=== PATIENT | female | born 1975 | race Caucasian/White ===

== ENCOUNTER 2017-05-11 14:06 | Emergency (ER) | payer MEDICAID ==
[~2017-05-11] VITALS: Ht 149.9 cm; Wt 63.5 kg
[2017-05-11 14:16] VITALS: BP 140/99
[2017-05-11 15:34] LABS: Mean Platelet Volume 7.5 fL (6.9-10.8); Monocytes # (auto) 0.6 uL; Nucleated Red Blood Cells % 0.1 %
[2017-05-11 15:38] LABS: Basophils # (auto) 0 uL; Basophils % (auto) 0.4 % (0.0-2.0); Eosinophils # (auto) 0.2 uL; Eosinophils % (auto) 1.3 % (0.0-7.0); Hematocrit 44.1 % (36.0-46.0); Lymphocytes % (auto) 25.6 % (10.0-50.0); Mean Corpuscular Hemoglobin 32.2 pg (28.0-32.0); Mean Corpuscular Hgb Conc. 33.9 g/dL (32.0-36.0); Mean Corpuscular Volume 94.9 fL (80.0-100.0); Neutrophils # (auto) 8.1 uL; Neutrophils % (auto) 67.7 % (37.0-80.0); Platelet Count (auto) 475 10^3/uL (140-450); Red Cell Distribution Width 13.1 % (11.8-14.3); White Blood Cell 11.9 10^3/uL (4.4-10.8)
[2017-05-11 15:48] LABS: Albumin 4.1 g/dL (3.4-5.0); Alkaline Phosphatase 68 U/L (45-117); Anion Gap 7 (5-15); Aspartate Aminotransferase 13 U/L (15-37); BUN/Creatinine Ratio 11.9; Bilirubin, Total 0.3 mg/dL (0.2-1.0); Blood Urea Nitrogen 10 mg/dL (7-18); Calcium 9.3 mg/dL (8.5-10.1); Carbon Dioxide 28 mmol/L (21-32); Chloride 104 mmol/L (98-107); GFR African American 97 mL/min; GFR Non-African American 80 mL/min; Glucose 114 mg/dL (74-106); Magnesium 2.6 mg/dL (1.6-2.6); Potassium 4.3 mmol/L (3.5-5.1); Sodium 139 mmol/L (136-145); Total Protein 8.2 g/dL (6.4-8.2)
== END 2017-05-11 19:33 | disposition left against medical advice (07) ==
LOC: ER 14:06
DX: R07.89 Other chest pain (principal); Z53.21 Procedure and treatment not carried out due to patient leaving prior to being seen by health care provider
CPT/HCPCS: 36415; 80053; 83735; 84484; 85025

== ENCOUNTER 2017-10-20 10:38 | Emergency (ER) | payer MEDICAID ==
[~2017-10-20] VITALS: Ht 147.3 cm; Wt 63.5 kg
[2017-10-20 10:53] VITALS: BP 169/101
== END 2017-10-20 12:21 | disposition home or self-care (01) ==
LOC: ER 10:38
DX: F41.9 Anxiety disorder, unspecified (principal); J45.909 Unspecified asthma, uncomplicated; Z76.0 Encounter for issue of repeat prescription; Z88.1 Allergy status to other antibiotic agents

== ENCOUNTER 2018-01-26 17:45 | Emergency (ER) | payer MEDICAID ==
[~2018-01-26] VITALS: Ht 147.3 cm; Wt 56.7 kg
[2018-01-26 19:24] LABS: Urine Bacteria NONE SEEN /hpf (None Seen); Urine Blood 2+ /uL (Negative); Urine Mucus FEW (None Seen); Urine Specific Gravity 1.026 (1.001-1.035); Urine WBC 24 /hpf (0 - 5)
[2018-01-26 19:48] LABS: Basophils # (auto) 0.1 uL; Basophils % (auto) 0.4 % (0.0-2.0); Eosinophils # (auto) 0.1 uL; Eosinophils % (auto) 0.9 % (0.0-7.0); Hematocrit 42.3 % (36.0-46.0); Hemoglobin 14.3 g/dL (12.2-16.2); Lymphocytes # (auto) 2.1 uL; Mean Corpuscular Hemoglobin 31.3 pg (28.0-32.0); Mean Corpuscular Hgb Conc. 33.8 g/dL (32.0-36.0); Mean Corpuscular Volume 92.7 fL (80.0-100.0); Monocytes # (auto) 1.2 uL; Monocytes % (auto) 7.5 % (0.0-12.0); Neutrophils # (auto) 12.7 uL; Neutrophils % (auto) 78.2 % (37.0-80.0); Nucleated Red Blood Cells % 0.1 %; Platelet Count (auto) 417 10^3/uL (140-450); Red Blood Cells 4.57 10^6/uL (4.0-5.20); Red Cell Distribution Width 13.7 % (11.8-14.3); White Blood Cell 16.2 10^3/uL (4.4-10.8)
[2018-01-26 20:07] LABS: Alanine Aminotransferase 16 U/L (13-56); Albumin 3.7 g/dL (3.4-5.0); Alkaline Phosphatase 62 U/L (45-117); Anion Gap 5 (5-15); Aspartate Aminotransferase 9 U/L (15-37); BUN/Creatinine Ratio 13.5; Bilirubin, Total 0.3 mg/dL (0.2-1.0); Blood Urea Nitrogen 10 mg/dL (7-18); Carbon Dioxide 26 mmol/L (21-32); Chloride 105 mmol/L (98-107); GFR African American 111 mL/min; GFR Non-African American 92 mL/min; Glucose 103 mg/dL (74-106); Magnesium 2.7 mg/dL (1.6-2.6); Potassium 3.8 mmol/L (3.5-5.1); Sodium 136 mmol/L (136-145); Total Protein 8.1 g/dL (6.4-8.2)
[2018-01-26 22:10] VITALS: BP 158/88
[2018-01-27] MEDS ORDERED: PROMETHAZINE W/CODEINE 5 ML ORAL SYRUP PO ONE (00:15)
[2018-01-27] MEDS ORDERED: SODIUM CHLORIDE 0.9% 2,000 ML IV ONE (00:15)
[2018-01-27] MEDS ORDERED: KETOROLAC TROMETH 30 MG/ML 1ML VIAL IV ONE (00:15)
== END 2018-01-27 02:03 | disposition left against medical advice (07) ==
LOC: ER 17:45
DX: J11.1 Influenza due to unidentified influenza virus with other respiratory manifestations (principal); J45.909 Unspecified asthma, uncomplicated; Z88.1 Allergy status to other antibiotic agents; Z53.29 Procedure and treatment not carried out because of patient's decision for other reasons
CPT/HCPCS: 36415; 71046; 80053; 81001; 83735; 84484; 85025; 93005

== ENCOUNTER 2018-07-13 03:29 | Emergency (ER) | payer MEDICAID ==
[~2018-07-13] VITALS: Ht 149.9 cm; Wt 56.7 kg
[2018-07-13 03:45] VITALS: BP 148/102
[2018-07-13] MEDS ORDERED: ACETAMINOPHEN 325 MG TAB PO ONE ×2 (03:51→04:00)
[2018-07-13 04:36] LABS: Urine Bacteria NONE SEEN /hpf (None Seen); Urine Blood 1+ /uL (Negative); Urine Mucus FEW (None Seen); Urine WBC 3 /hpf (0 - 5)
[2018-07-13 04:48] LABS: Alcohol, Urine < 3.0 mg/dL (0-5); Amphetamine Screen, Urine POSITIVE (NEGATIVE); Barbiturate Scree,Urine NEGATIVE (NEGATIVE); Benzodiazephine Screen, Urine NEGATIVE (NEGATIVE); Cannabinoid Screen, Urine NEGATIVE (NEGATIVE); Cocaine Screen, Urine NEGATIVE (NEGATIVE); Opiate Scree,Urine NEGATIVE (NEGATIVE); Phencyclidine Screen, Urine NEGATIVE (NEGATIVE)
== END 2018-07-13 05:53 | disposition left against medical advice (07) ==
LOC: ER 03:30
DX: N23 Unspecified renal colic (principal); Z53.21 Procedure and treatment not carried out due to patient leaving prior to being seen by health care provider
CPT/HCPCS: 71046; 80307; 81001